=== PATIENT | male | born 1960 | race Two or more races ===

== ENCOUNTER 2021-08-22 12:14 | Inpatient (IN) | payer OTHER ==
[~2021-08-22] VITALS: Ht 157.5 cm; Wt 68.0 kg
[2021-08-23] MEDS ORDERED: NORVASC10 MG (08:51)
[2021-08-23] MEDS ORDERED: PANADOL EXTRA500 MG (08:52)
[2021-08-23] MEDS ORDERED: GLUMETZA500 MG (08:52)
[2021-08-23] MEDS ORDERED: ZESTRIL2.5 MG (08:53)
== END 2021-08-28 13:02 | disposition home or self-care (01) | DRG 348 ==
LOC: SURG 12:14
PROVIDERS: ADMIT Colon & Rectal Surgery; ATTEND Colon & Rectal Surgery
PROC: 0D9Q7ZZ Drainage of Anus, Via Natural or Artificial Opening (ICD-10-PCS; principal; 2021-08-24 14:45)
DX: K61.0 Anal abscess (principal); B37.89 Other sites of candidiasis; I10 Essential (primary) hypertension; E11.9 Type 2 diabetes mellitus without complications; B96.29 Other Escherichia coli [E. coli] as the cause of diseases classified elsewhere; B96.6 Bacteroides fragilis [B. fragilis] as the cause of diseases classified elsewhere; B96.1 Klebsiella pneumoniae [K. pneumoniae] as the cause of diseases classified elsewhere; B95.2 Enterococcus as the cause of diseases classified elsewhere; B96.89 Other specified bacterial agents as the cause of diseases classified elsewhere; Z20.822 Contact with and (suspected) exposure to COVID-19